=== PATIENT | female | born 1985 | race American Indian/Alaskan Native ===

== ENCOUNTER 2020-04-07 15:32 | Outpatient (CLI) | payer OTHER ==
[2020-04-07 16:26] LABS: Eosinophils % (Auto) 0.5 % (0.0-4.3); Hematocrit 33.4 % (30.3-42.9); Hemoglobin 10.7 gm/dl (10.1-14.3); Lymphocytes # (Auto) 1.6 K/mm3 (1.2-5.4); Lymphocytes % (Auto) 34.5 % (13.4-35.0); Mean Corpuscular HGB Conc 32 % (30-34); Mean Corpuscular Volume 74 fl (79-97); Monocytes # (Auto) 0.3 K/mm3 (0.0-0.8); Monocytes % (Auto) 6.5 % (0.0-7.3); Platelet Count 321 K/mm3 (140-440); Red Blood Count 4.52 M/mm3 (3.65-5.03)
[2020-04-07 16:40] LABS: Alanine Aminotransferase 21 units/L (7-56); Blood Urea Nitrogen 11 mg/dL (7-17); Calcium 9.1 mg/dL (8.4-10.2); Chol/HDL Ratio 2.48 %; HDL Cholesterol 64 mg/dL (40-59); Hemolysis Index 0; Iron 37 ug/dL (37-170); LDL Cholesterol,Direct 93 mg/dL (50-130)
[2020-04-07 16:42] LABS: BUN/Creatinine Ratio 22
== END 2020-04-07 15:33 | disposition home or self-care (01) ==
LOC: LAB 15:32
PROVIDERS: ATTEND Internal Medicine
DX: Z00.00 Encounter for general adult medical examination without abnormal findings (principal); Z13.1 Encounter for screening for diabetes mellitus; Z13.220 Encounter for screening for lipoid disorders; Z13.29 Encounter for screening for other suspected endocrine disorder; E55.9 Vitamin D deficiency, unspecified; D50.9 Iron deficiency anemia, unspecified
CPT/HCPCS: 36415; 80053; 80061; 82306; 82728; 83036; 83540; 84443; 85025

== ENCOUNTER 2020-04-29 20:52 | Emergency (ER) | payer OTHER ==
[2020-04-29 21:15] VITALS: BP 156/71
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
[2020-04-29] MEDS ORDERED: HYDROcodone/ACETAMINOPHEN 5-325 MG TAB PO ONE (22:13)
== END 2020-04-29 23:00 | disposition home or self-care (01) ==
LOC: ED 20:52
DX: S92.425A Nondisplaced fracture of distal phalanx of left great toe, initial encounter for closed fracture (principal); Z79.899 Other long term (current) drug therapy; Z98.890 Other specified postprocedural states; V49.59XA Passenger injured in collision with other motor vehicles in traffic accident, initial encounter; Y92.410 Unspecified street and highway as the place of occurrence of the external cause; Y93.89 Activity, other specified; Y99.8 Other external cause status

== ENCOUNTER 2020-09-19 13:00 | Outpatient (CLI) | payer OTHER ==
[2020-09-19 13:09] LABS: Basophils % (Auto) 0.7 % (0.0-1.8); Eosinophils % (Auto) 0.6 % (0.0-4.3); Hematocrit 30.9 % (30.3-42.9); Hemoglobin 10.4 gm/dl (10.1-14.3); Lymphocytes # (Auto) 1.1 K/mm3 (1.2-5.4); Lymphocytes % (Auto) 31.5 % (13.4-35.0); Mean Corpuscular HGB Conc 34 % (30-34); Monocytes # (Auto) 0.3 K/mm3 (0.0-0.8); Monocytes % (Auto) 9.3 % (0.0-7.3); Platelet Count 262 K/mm3 (140-440); Red Blood Count 4.43 M/mm3 (3.65-5.03); Red Cell Distribution Width 18.6 % (13.2-15.2)
[2020-09-19 13:19] LABS: INR 0.9 (0.87-1.13)
[2020-09-19 13:20] LABS: Partial Thromboplastin Time 25.6 Sec. (24.2-36.6)
[2020-09-19 13:21] LABS: Mean Corpuscular Volume 70 fl (79-97)
[2020-09-19 14:00] LABS: Alanine Aminotransferase 19 units/L (7-56); Blood Urea Nitrogen 7 mg/dL (7-17); Calcium 8.5 mg/dL (8.4-10.2); Hemolysis Index 0
[2020-09-19 14:03] LABS: BUN/Creatinine Ratio 14
== END 2020-09-19 23:59 | disposition home or self-care (01) ==
LOC: LAB 13:00
PROVIDERS: ATTEND Internal Medicine
DX: Z01.810 Encounter for preprocedural cardiovascular examination (principal); D50.9 Iron deficiency anemia, unspecified
CPT/HCPCS: 36415; 80053; 85025; 85610; 85730

== ENCOUNTER 2021-06-25 17:30 | Outpatient (CLI) | payer MEDICAID, OTHER ==
[2021-06-25 18:03] LABS: Basophils % (Auto) 0.4 % (0.0-1.8); Eosinophils % (Auto) 0.2 % (0.0-4.3); Hematocrit 29.3 % (30.3-42.9); Hemoglobin 9.1 gm/dl (10.1-14.3); Lymphocytes # (Auto) 1.9 K/mm3 (1.2-5.4); Lymphocytes % (Auto) 36.9 % (13.4-35.0); Mean Corpuscular HGB Conc 31 % (30-34); Monocytes # (Auto) 0.4 K/mm3 (0.0-0.8); Monocytes % (Auto) 7.1 % (0.0-7.3); Platelet Count 354 K/mm3 (140-440); Red Blood Count 4.43 M/mm3 (3.65-5.03); Red Cell Distribution Width 19.5 % (13.2-15.2)
[2021-06-25 18:05] LABS: Mean Corpuscular Volume 66 fl (79-97)
[2021-06-25 18:21] LABS: Alanine Aminotransferase 23 units/L (7-56); Albumin 3.9 g/dL (3.9-5); Blood Urea Nitrogen 7 mg/dL (7-17); Calcium 9.2 mg/dL (8.4-10.2); Chol/HDL Ratio 2.49 %; HDL Cholesterol 65 mg/dL (40-59); Hemolysis Index 0; LDL Cholesterol,Direct 91 mg/dL (50-130)
[2021-06-25 18:24] LABS: BUN/Creatinine Ratio 14
== END 2021-06-25 17:31 | disposition home or self-care (01) ==
LOC: LAB 17:30
PROVIDERS: ATTEND Internal Medicine
DX: Z00.00 Encounter for general adult medical examination without abnormal findings (principal); E55.9 Vitamin D deficiency, unspecified; E66.9 Obesity, unspecified; R53.83 Other fatigue; I50.9 Heart failure, unspecified
CPT/HCPCS: 36415; 80053; 80061; 82306; 84443; 85025